=== PATIENT | female | born 1995 | race Caucasian/White ===

== ENCOUNTER 2024-06-15 10:04 | Emergency (ER) | payer OTHER, BC, SELFPAY ==
[2024-06-15 10:13] VITALS: BP 103/69; PULSE 62; RESP 16; TEMP 36.6; O2SAT 100; BMI 20.3
--- NOTE | 2024-06-15 13:29 | ED.ANIMALBIT ---
HPI - Animal Bite General Chief Complaint: Animal Bite Stated Complaint: rabies shot work related Time Seen by Provider: 06/15/24 13:10 Source: patient Mode of arrival: ambulatory Limitations: no limitations History of Present Illness ED Provider: FRANCISCO IRTCHIE PA-C HPI narrative: 28 year old female with no significant pmhx presents to the ED today requesting rabies vaccinations. Patient works at a [employer] and approximately 10 days ago, unknowingly handled a cat without gloves that had succumbed to rabies. The animal did not bite here however patient states she had an open wound on her hand. Denies headache, dizziness, N/V, weakness, fatigue. No physical complaints at present. She is not currently vaccinated against rabies. Tetanus UTD. Related Data Home Medications ?Medication ?Instructions ?Recorded ?Confirmed acetaminophen 500 mg tablet 500 mg PO Q6H PRN 03/21/23 (Tylenol Extra Strength) fluoxetine 20 mg capsule (Prozac) 20 mg PO DAILY 03/21/23 norethindrone (contraceptive) 0.35 0.35 mg PO DAILY 03/21/23 mg tablet Previous Rx's ?Medication ?Instructions ?Recorded amoxicillin 875 mg-potassium 1 tab PO Q12H 10 days #20 tabs 03/21/23 clavulanate 125 mg tablet Allergies Allergy/AdvReac Type Severity Reaction Status Date / Time No Known Allergies Allergy Verified 06/15/24 10:16 Review of Systems Review of Systems: Constitutional: No fever, chills, fatigue, night sweats, weight changes ENT/Mouth: No ear pain, hearing loss, nasal congestion, sinus pain, rhinorrhea, sore throat Eyes: No eye pain, swelling, redness, vision changes, discharge Cardio: No chest pain, palpitations, STEWART, orthopnea, peripheral edema Pulm: No SOB, cough, sputum, wheezing, dyspnea, hemoptysis GI: No nausea, vomiting, hematemesis, abdominal pain, diarrhea, constipation, hematochezia, melena : No irregular bleeding, dysuria, frequency, urgency, hesitancy, hematuria, flank pain, urinary flow changes, urinary incontinence or retention MSK: No back pain, neck pain, joint pain, myalgias Skin: No lesions, rashes Neuro: No weakness, numbness, paresthesias, LOC, dizziness, headache Psych: No anxiety/panic, depression, SI/HI, AH/VH All other systems reviewed and are negative. [facility] Past Medical History Attestation statement: The following information was validated with the patient. Source: old records reviewed and nursing notes reviewed Social History Social History Patient Tobacco Use Status: Never used Tobacco Advance Directives: No Advance Directives Information Provided: No Physical Exam ED Vital Signs: Vital Signs - 24 hr 06/15/24 10:13 Temperature 97.8 F Pulse Rate 62 Respiratory Rate 16 Blood Pressure 103/69 Pulse Oximetry 100 Oxygen Delivery Method Room Air BMI result Body Mass Index 20.3 Vital signs stable, afebrile General: Well appearing, in no acute distress. Skin: Warm, dry, intact. No rashes or lesions. Head: Normocephalic, atraumatic. EENT: Hearing is intact b/l. Conjunctiva clear. Sclera is anicteric. PERRLA. EOM intact. Moist mucous membranes.? Neck: Supple without LAD. Cardiac: Chest wall symmetric. RRR Lungs: Normal respiratory effort without accessory muscle use. CTA bilaterally. ? Abdomen: Soft, non-tender, non-distended. No rebound tenderness or guarding. Positive BS x4. Back: No midline spinous or paraspinal tenderness. No step off deformity. Ext: Upper and lower extremities atraumatic, without tenderness, deformity, swelling or erythema. Neuro: AOx3. Normal speech. Ambulating with steady gait. Psych: Appropriate mood and affect. Responds appropriately to questions. Medical Decision Making Medical Decision Making MDM Narrative: 28 year old female with no significant pmhx presents to the ED today requesting rabies vaccinations. Vital signs stable, afebrile. She is nontoxic-appearing and in no acute distress. Physical exam benign. Given exposure >10 days ago without symptoms, the likelihood of patient adama rabies is extremely low. After discussion, patient was still like to be vaccinated. Rabies vaccine/immunoglobulin ordered. Differential Diagnosis Differential Diagnoses: The differential diagnosis associated with the presentation includes As above Admission/Observation Not indicated Social Determinants Patient?s care significantly limited by Social Determinants of Health including: Other Social Determinant of Health Critical Care Time Critical Care Time Critical Care Time: No Discharge Plan Discharge Clinical Impression: Rabies exposure Patient Disposition: Home, Self-Care Instructions: Rabies Vaccine (By injection), Rabies Immune Globulin (By injection), Rabies (ED) Additional Instructions: You were evaluated in the ED today following rabies exposure. You were provided with the immune globulin along with the 1st vaccination within the rabies series. You need to follow up with the infusion center for subsequent vaccinations. Follow up with PCP as needed. Rabies follow up with the [facility]: Upon discharge from the ED today, you will be contacted by the Infusion Center to schedule your follow up Rabies vaccines. You will need a total of 3 more injections. If for some reason you do not receive a call, please call the Infusion Center directly at [phone]. Follow up with your primary care provider after completion of the vaccine to have a titer drawn to ensure the vaccines effectiveness. Prescriptions: No Action norethindrone (contraceptive) 0.35 mg tablet 0.35 mg PO DAILY fluoxetine [Prozac] 20 mg capsule 20 mg PO DAILY acetaminophen [Tylenol Extra Strength] 500 mg tablet 500 mg PO Q6H PRN amoxicillin-pot clavulanate 875-125 mg tablet 1 tab PO Q12H 10 Days Qty: 20 0RF Stand Alone Forms: Work/School Release Print Language: Korean
--- NOTE | 2024-06-15 14:17 | PC.NURSE ---
administration delay of rabies vaccine due to malfunction of fridge pharmacy notified they are sending someone to fix it.
[2024-06-15] MEDS: Rabies Vaccine (PCEC)/PF 1 ML VIAL IM (15:02)
[2024-06-15] MEDS: Rabies Immune Globulin/PF 900 UNIT/3 ML VIAL 1214 UNIT IM (15:03)
[2024-06-15 15:09] VITALS: BP 103/69; PULSE 62; RESP 16; TEMP 36.6; O2SAT 100
== END 2024-06-15 15:10 | disposition home or self-care (01) ==
PROVIDERS: Emergency Provider Emergency Medicine Emergency Medical Services
DX: Z20.3 Contact with and (suspected) exposure to rabies (principal); Z23 Encounter for immunization
CPT/HCPCS: 90375; 90471; 90675; 96372; 99282; 99284

== ENCOUNTER 2024-11-22 07:15 | Emergency (ER) | payer BC, SELFPAY ==
--- NOTE | ~2024-11-22 | XR_ITS ---
CLINICAL HISTORY: R upper thoracic pain 3 views thoracic spine Comparison: None Findings: There is mild scoliotic curvature of the thoracic vertebrae. No acute fractures or dislocation. No significant degenerative change. IMPRESSION: No acute findings. This document has been electronically signed by: Cristino Aguilera MD on 11/22/2024 08:23:07
[2024-11-22 07:22] VITALS: BP 102/63; PULSE 67; RESP 16; TEMP 36.8; O2SAT 100; BMI 21.8
--- NOTE | 2024-11-22 07:38 | ECG_ITS ---
Test Reason : BACK PAIN Blood Pressure : */* mmHG Vent. Rate : 58 BPM Atrial Rate : 58 BPM P-R Int : 148 ms QRS Dur : 92 ms QT Int : 444 ms P-R-T Axes : 23 63 11 degrees QTcB Int : 435 ms Sinus bradycardia with sinus arrhythmia Cannot rule out Anterior infarct , age undetermined Abnormal ECG No previous ECGs available Referred By: Florencio Abrams Electronically Signed By: Jermaine Sheffield
--- NOTE | 2024-11-22 07:39 | ED_ITS ---
HPI - General Adult General Chief complaint: General Medical Stated complaint: back pain Time Seen by Provider: 11/22/24 07:27 Source: patient and other (significant other ) Mode of arrival: ambulatory Limitations: no limitations History of Present Illness ED Provider: CARLOS Abrams HPI narrative: this is a 29-year-old female past medical history of hyperlipidemia who presents to the emergency department complaints of right-sided thoracic back pain. Strangely, patient states that her back pain is worse with deep breathing. Pain started suddenly yesterday after she woke up from a nap. Pain is worse with any movement and better at rest. She reports it is not reproducible with palpation. She has tried Tylenol with little to no relief. She denies falls or traumas. No history of DVT or PE. No long travel. She reports at times she feels of pain in her chest however not at this time. Denies fevers, chills, headache, vision changes, dizziness, weakness, nausea, vomiting, abdominal pain. She is on combination control therapy. Related Data Home Medications ?Medication ?Instructions ?Recorded ?Confirmed acetaminophen 500 mg tablet 500 mg PO Q6H PRN 03/21/23 (Tylenol Extra Strength) fluoxetine 20 mg capsule (Prozac) 20 mg PO DAILY 03/21/23 norethindrone (contraceptive) 0.35 0.35 mg PO DAILY 03/21/23 mg tablet Previous Rx's ?Medication ?Instructions ?Recorded amoxicillin 875 mg-potassium 1 tab PO Q12H 10 days #20 tabs 03/21/23 clavulanate 125 mg tablet cyclobenzaprine 10 mg tablet 10 mg PO BEDTIME PRN muscle spasm 11/22/24 #7 tabs ketorolac 10 mg tablet 10 mg PO TID PRN pain 5 days #15 11/22/24 tabs morphine 15 mg immediate release 15 mg PO Q6H PRN pain 5 days #10 11/22/24 tablet tabs Allergies Allergy/AdvReac Type Severity Reaction Status Date / Time No Known Allergies Allergy Verified 11/22/24 07:22 Review of Systems 2 Review of Systems: Yes all other systems are reviewed and are negative [facility] Past Medical History Attestation statement: The following information was validated with the patient. Source: old records reviewed and nursing notes reviewed Social History Social History Patient Tobacco Use Status: Never used Tobacco Advance Directives: No Advance Directives Information Provided: No Physical Exam ED Vital Signs: Vital Signs - 24 hr 11/22/24 07:22 Temperature 98.3 F Pulse Rate 67 Respiratory Rate 16 Blood Pressure 102/63 Pulse Oximetry 100 Oxygen Delivery Method Room Air BMI result Body Mass Index 21.8 vss Appearance: Alert.? Oriented X3.? No acute distress.? Head: Normocephalic, atraumatic, no step-offs or deformities Neck: Normal inspection.? Neck supple.? CVS: Normal heart rate and rhythm.? Pulses normal.? Respiratory: No respiratory distress.? Breath sounds normal.? Abdomen: Soft and nontender.? Skin: Skin warm and dry.? Normal skin color.? Normal skin turgor.? Extremities: No lower extremity edema.? No calf ttp. 5/5 strength to bilateral upper and lower extremities Back: No midline tenderness, no C-spine tenderness, full range of motion, no CVA tenderness bilaterally Neuro: Oriented X 3.? No motor deficit.? No sensory deficit. CN 2-12 intact Course Reevaluation(s) Reevaluation #1: EKG nonischemic bradycardia with sinus arrhythmia. X-ray thoracic spine unremarkable. Lab test still pending. Time: 08:27 Reevaluation #2: CBC unremarkable. Chemistry no acute findings meeting intervention. Troponin 6.2, nonischemic EKG 2nd troponin pending. D-dimer negative, no indication for CTA as low suspicion and negative PERC. Patient refused chest x-ray. As long as 2nd troponin is negative patient to be discharged home with PCP and possible spine follow-up in case this is a thoracic radiculopathy. On re-evaluation patient reports she is feeling about the same pain is still present to the right upper thoracic region. Time: 09:45 Reevaluation #3: Troponin flat. Patient feeling slightly better. Educated patient on diagnosis and treatment plan, answered all question, patient verbalizes understanding. At this time patient will be discharged home, advised to return with new or worsening symptoms. Educated on worrisome signs and symptoms and when to return. At this time I feel comfortable discharge home. Time: 10:22 Medications Administered Discontinued Medications Generic Name Dose Route Start Last Admin Trade Name Freq PRN Reason Stop Dose Admin Cyclobenzaprine HCl 10 mg 11/22/24 09:17 11/22/24 09:32 Cyclobenzaprine Hcl 10 Mg Tablet PO 11/22/24 09:18 10 mg ONCE ONE Administration Ketorolac Tromethamine 30 mg 11/22/24 07:28 11/22/24 08:33 Ketorolac Tromethamine 30 Mg/Ml Vial IM 11/22/24 07:29 30 mg ONCE ONE Administration Lidocaine 1 patch 11/22/24 07:28 11/22/24 09:16 Lidocaine 4 % Patch Adh..Patch TRANSDERMA 11/22/24 07:29 1 patch ONCE ONE Administration Protocol Morphine Sulfate 2 mg 11/22/24 09:17 11/22/24 09:32 Morphine Sulfate 2 Mg/Ml Cartridge IVPUSH 11/22/24 09:18 2 mg ONCE ONE Administration Protocol Medical Decision Making Medical Decision Making [facility] Narrative: 29-year-old female presents with right-sided thoracic back pain worse with deep breathing and at times felt in her chest. Ongoing since yesterday. Atraumatic in nature. Physical exam benign. History and physical exam most consistent with musculoskeletal pain / spasm Versus costochondritis. Due to patient history will rule out PE although less likely as patient is PERC negative. Unlikely ACS, dissection. No signs of acute respiratory distress. Unlikely pyelonephritis or Renal colic. Plan labs, imaging, EKG. Differential Diagnosis Differential Diagnoses: The differential diagnosis associated with the presentation includes ( History and physical exam most consistent with musculoskeletal pain / spasm Versus costochondritis. Due to patient history will rule out PE although less likely as patient is PERC negative. Unlikely ACS, dissection. No signs of acute respiratory distress. Unlikely pyelonephritis or Renal co) Admission/Observation Consideration of admission/observation: Escalation of care including admission/observation considered Lab Data [facility] Lab Attestation statement: I reviewed the patient's lab results. 11/22/24 08:32 11/22/24 08:32 Labs: Lab Results 11/22/24 11/22/24 Range/Units 08:32 09:49 WBC 4.9 (4.8-10.8) X10*3/uL RBC 4.50 (4.20-5.50) X10*6/uL Hgb 13.0 (12.0-16.0) g/dl Hct 39.1 (37.0-47.0) % MCV 86.9 (80.0-98.0) fL MCH 28.9 (27.0-33.0) pg MCHC 33.2 (31.0-35.0) g/dl RDW 13.3 (11.0-16.0) % Plt Count 229 (160-400) X10*3/uL MPV 9.5 (9.4-12.3) fL Immature Gran % (Auto) 0.2 (0.0-0.4) % Neut % (Auto) 53.9 (45-73) % Lymph % (Auto) 34.0 (20-40) % [place] % (Auto) 7.8 (2-11) % Eos % (Auto) 3.3 (0-4) % Baso % (Auto) 0.8 (0-2) % Lymph # (Auto) 1.7 (1.2-4.9) X10*3/uL [place] # (Auto) 0.4 (0.1-1.2) X10*3/uL Eos # (Auto) 0.2 (0.0-0.4) X10*3/uL Baso # (Auto) 0.0 (0.0-0.2) X10*3/uL Abs Immat Gran (auto) 0.01 (0.00-0.03) X10*3/uL Absolute Neuts (auto) 2.6 (2.0-8.3) x10*3/uL Absolute Nucleated RBC 0.000 (0.0-0.012) X10*3/uL Nucleated RBC % (auto) 0.0 (0.0-0.2) /100WBC PT 10.6 L (10.9-12.4) SEC INR 0.9 (0.9-1.1) D-Dimer High Sensitivty < 150 NG/ML Sodium 141 (135-145) mmol/L Potassium 3.8 (3.3-5.1) mmol/L Chloride 109 H (96-108) mmol/L Carbon Dioxide 24 (22-29) mmol/L Anion Gap 12 (12-20) BUN 14 (9-16) mg/dL Creatinine 0.80 (0.5-1.4) mg/dL Estim Creat Clear Calc 104.6 Estimated GFR > 60 Random Glucose 93 (60-115) mg/dL Calcium 9.1 (8.4-10.2) mg/dL Magnesium 2.0 (1.6-2.6) mg/dL Total Bilirubin 0.3 (0.0-1.0) mg/dL AST 24 (5-31) U/L ALT 23 (0-31) U/L Alkaline Phosphatase 38 L (39-117) U/L Troponin I High Sens 6.2 4.6 (<3.5-17.0) ng/L Total Protein 7.7 (6.5-8.0) g/dL Albumin 4.4 (3.5-5.0) g/dL Independent Interpretation I performed an independent interpretation of an: EKG (Sinus bradycardia with sinus arrhythmia Cannot rule out Anterior infarct , age undetermined Abnormal ECG No previous ECGs available) and Plain X-Ray (Findings: There is mild scoliotic curvature of the thoracic vertebrae. No acute fractures or dislocation. No significant degenerative change. IMPRESSION: No acute findings.) Radiology Impression Discussion of test interpretation with radiology: I have reviewed the radiologist's reading. Critical Care Time Critical Care Time Critical Care Time: Yes Total Critical Care Time: 35 Attestation: I attest to this time spent taking care of the patient, obtaining history, physical, reviewing labs, imaging, treatment of patients condition +/- specialist/hospitalist consult Discharge Plan Discharge Clinical Impression: Back pain, thoracic Patient Disposition: Home, Self-Care Instructions: Back Pain (ED) Additional Instructions: Take your medications as prescribed. If you were prescribed antibiotics today, it is important that you take your medication to their entirety, do not skip any doses, do not finish them early. Follow-up with your primary care provider this week. Return to the emergency department with new or worsening symptoms. Such as fevers, chills, chest pain, shortness of breath, nausea, vomiting, dizziness, headache, vision changes, lethargy In case of emergency call 911 Toradol has been sent to your pharmacy, you tolerated this well in the department. Please take this as prescribed do not take this with ibuprofen, or other NSAIDs, do not mix this with alcohol. Side effects of this medication including increased risk for bleeding and possible kidney injury. Cyclobenzaprine is a muscle relaxer it is strong and can make you drowsy. Do not take with sedatives or any other muscle relaxers or alcohol. Do not drive or operate machinery while taking this. Do not share this medication with anyone. If pain persists you may want to follow-up with a specialist. I have attached to phone numbers were you can call to see if you can get appointments. This could be a thoracic radiculopathy and you may need an MRI down the line Prescriptions: New cyclobenzaprine 10 mg tablet 10 mg PO BEDTIME PRN (Reason: muscle spasm) Qty: 7 0RF ketorolac 10 mg tablet 10 mg PO TID PRN (Reason: pain) 5 Days Qty: 15 0RF Rx Instructions: Tolerated IM or IV in department morphine 15 mg tablet 15 mg PO Q6H PRN (Reason: pain) 5 Days Qty: 10 0RF Rx Instructions: Partial Fill upon patient request. No Action norethindrone (contraceptive) 0.35 mg tablet 0.35 mg PO DAILY fluoxetine [Prozac] 20 mg capsule 20 mg PO DAILY acetaminophen [Tylenol Extra Strength] 500 mg tablet 500 mg PO Q6H PRN amoxicillin-pot clavulanate 875-125 mg tablet 1 tab PO Q12H 10 Days Qty: 20 0RF Referrals: [facility] [Provider Group] - 3 days Aure Minaya PA [Primary Care Provider] - 2 days Sergey Elizabeth MD, PhD [Physician] - 3 days Stand Alone Forms: Work/School Release Print Language: Upper Sorbian
[2024-11-22] MEDS: Ketorolac Tromethamine 30 MG/ML VIAL IM (08:33)
[2024-11-22 08:37] LABS: MANUAL DIFF FLAG NO
[2024-11-22 08:38] LABS: Basophils Percent Auto 0.8 % (0-2); Eosinophils Absolute Auto 0.2 X10*3/uL (0.0-0.4); Eosinophils Percent Auto 3.3 % (0-4); Hematocrit 39.1 % (37.0-47.0); Imm Gran Abs Auto 0.01 X10*3/uL (0.00-0.03); Imm Gran Pct Auto 0.2 % (0.0-0.4); Lymphocytes Absolute Auto 1.7 X10*3/uL (1.2-4.9); Mean Corpuscular HGB Conc 33.2 g/dl (31.0-35.0); Mean Corpuscular Hemoglobin 28.9 pg (27.0-33.0); Mean Corpuscular Volume 86.9 fL (80.0-98.0); Mean Platelet Volume 9.5 fL (9.4-12.3); Monocytes Absolute Auto 0.4 X10*3/uL (0.1-1.2); Monocytes Percent Auto 7.8 % (2-11); Neutrophils Absolute Auto 2.6 x10*3/uL (2.0-8.3); Neutrophils Percent Auto 53.9 % (45-73); Platelet Count 229 X10*3/uL (160-400); Red Cell Distribution Width 13.3 % (11.0-16.0); White Blood Count 4.9 X10*3/uL (4.8-10.8)
[2024-11-22 08:49] LABS: INTERNATIONAL NORM RATIO 0.9 (0.9-1.1); Prothrombin Time 10.6 SEC (10.9-12.4)
[2024-11-22 08:52] LABS: Alanine Aminotransferase 23 U/L (0-31); Albumin Level 4.4 g/dL (3.5-5.0); Alkaline Phosphatase 38 U/L (39-117); Anion Gap 12 (12-20); Aspartate Amino Transferase 24 U/L (5-31); Bilirubin Total 0.3 mg/dL (0.0-1.0); Blood Urea Nitrogen 14 mg/dL (9-16); Calcium 9.1 mg/dL (8.4-10.2); Carbon Dioxide 24 mmol/L (22-29); Chloride 109 mmol/L (96-108); Creatinine Clr Calc Pharmacy 104.6; Estimated Glomerular Filt Rate > 60; Glucose Random 93 mg/dL (60-115); Potassium 3.8 mmol/L (3.3-5.1); Sodium 141 mmol/L (135-145); Total Protein 7.7 g/dL (6.5-8.0)
[2024-11-22 08:53] LABS: D Dimer High Sensitivity < 150 NG/ML
[2024-11-22 08:58] LABS: Troponin-I High Sensitivity 6.2 ng/L (<3.5-17.0)
[2024-11-22] MEDS: Lidocaine 4 % Patch ADH..PATCH 1 PATCH TRANSDERMA (09:16)
--- NOTE | 2024-11-22 09:23 | PC.NURSE ---
per CARLOS Abrams give toradol via IV
--- NOTE | 2024-11-22 09:23 | PC.NURSE ---
pt refused CXR
[2024-11-22] MEDS: Cyclobenzaprine HCl 10 MG TABLET PO (09:32)
[2024-11-22] MEDS: Morphine Sulfate 2 MG/ML CARTRIDGE IVPUSH (09:32)
[2024-11-22 10:16] LABS: Troponin-I High Sensitivity 4.6 ng/L (<3.5-17.0)
[2024-11-22 10:27] VITALS: BP 102/63; PULSE 67; RESP 16; TEMP 36.8; O2SAT 100
== END 2024-11-22 10:32 | disposition home or self-care (01) ==
PROVIDERS: Physician Assistant; Emergency Provider Emergency Medicine
DX: M54.6 Pain in thoracic spine (principal); I49.8 Other specified cardiac arrhythmias; R00.1 Bradycardia, unspecified; Z79.899 Other long term (current) drug therapy
CPT/HCPCS: 36415; 72070; 80053; 83735; 84484; 85025; 85379; 85610; 93005; 96372; 96374; 99283; 99284; J1885; J2270

== ENCOUNTER → 2024-11-22 07:38 | Outpatient (BNV) | payer BC, SELFPAY | PROVIDERS: Emergency Provider Emergency Medicine; Visit Provider Internal Medicine Cardiovascular Disease | DX: I49.9 Cardiac arrhythmia, unspecified (principal); R00.1 Bradycardia, unspecified | CPT/HCPCS: 93010 ==

== ENCOUNTER → 2024-11-22 07:42 | Outpatient (BNV) | payer BC, SELFPAY | PROVIDERS: Emergency Provider Emergency Medicine; Visit Provider Specialist | DX: M54.6 Pain in thoracic spine (principal) | CPT/HCPCS: 72070 ==